=== PATIENT | female | born 1935 | race African-American/Black ===

== ENCOUNTER 2019-02-22 08:39 | Inpatient (IN) ==
[2019-02-22] MEDS ORDERED: ZOFRAN IV PRN (13:04)
[2019-02-22] MEDS ORDERED: TYLENOL PO PRN (13:04)
[2019-02-22] MEDS ORDERED: NS 1,000 ML IV SCH (13:15)
[2019-02-22 13:24] LABS: BASO# 0.02 X1000 (0.0-0.2); BASO% 0.4 % (0.0-0.8); EOS# 0.13 X1000 (0.0-0.7); EOS% 2.7 % (0.0-10.0); HEMATOCRIT 27.9 % (37.0-47.0); HEMOGLOBIN 9.2 g/dL (12.0-16.0); IMM GRAN# 0.03 X1000 (0.0-0.04); IMM GRAN% 0.6 % (0.0-0.5); LYMPH# 1.22 X1000 (1.2-3.4); LYMPH% 25.4 % (20.5-51.1); MCH 29.2 PG (27-31); MCV 88.6 FL (81-99); MONO# 0.37 X1000 (0.11-0.59); MONO% 7.7 % (1.7-9.3); MPV 10.1 FL (7.4-10.4); NEUT# 3.03 X1000 (1.4-6.5); NEUT% 63.2 % (42.2-75.2); PLT 296 X1000 (130-400); RBC 3.15 XMIL (4.2-5.4); RDW 14.5 % (11.5-14.5)
[2019-02-22 13:47] LABS: ALBUMIN 3.6 g/dL (3.5-5.0); CALCIUM 9.4 mg/dL (8.8-10.2); CREATININE 2.5 mg/dL (0.5-0.9); POTASSIUM 5.1 mmol/L (3.5-5.1); TOTAL BILIRUBIN 0.25 mg/dL (0.20-1.00); TOTAL PROTEIN 7.3 g/dL (6.3-8.3)
--- NOTE | 2019-02-22 14:55 | PROGRESS NOTE ---
DATE: 02/22/2019 SUBJECTIVE: Patient has no major issues. She was at [facility], admitted for renal failure, anemia. Now she was found to have a ureteral mass and hydronephrosis of unknown age. Clinically, she really does not have any major issues on exam. She is doing okay. Her creatinine is at a level of 2.5 here, 2.8 which I think is a mild improvement from previous. The rest of her electrolytes are unremarkable. She is anemic but not profoundly so. PROBLEM LIST: 1. Acute on chronic renal failure. Continue hydration and follow. Check urine electrolytes but I am not sure if there may not be a chronic component or at least a chronic component related to her hydronephrosis. 2. Anemia, stable currently. We will continue to follow hemoglobin and hematocrit. 3. Ureteral mass. I have consulted Dr. Yi. He is continuous pickling line pickler today. I think they have discussed with Dr. Thompson, so in any case, she will get them evaluated. I think cystoscopy is reasonable but that will be at the discretion of the urologist. I will make her n.p.o. after midnight just in case. This is a euzk-mi-guhi encounter note with Karissa Leung. cc: MD Milvia Sandoval MD
--- NOTE | 2019-02-22 15:55 | HISTORY AND PHYSICAL ---
CHIEF COMPLAINT: Acute kidney injury and right UPJ mass. HISTORY OF PRESENT ILLNESS: Ms. Martinez is an 83-year-old female with a history of hypertension, gastroesophageal reflux disease, diabetes mellitus type 2, chronic kidney disease, hypothyroid. She presents to the hospital as a transfer from [facility]. According to the emergency room physician, Ms. Martinez presented with abdominal pain. A CT of the abdomen and pelvis was performed which reportedly revealed a UPJ mass with severe right hydronephrosis. She was also noted to have a creatinine of 3.6, and according to records at [facility], her baseline creatinine was 1.3. In report from the ER physician, she stated that Ms. Martinez was in urinary retention and reportedly had 1100 mL of urine output with abdominal pain decreasing. The ER physician stated that she spoke with Dr. Thompson. PAST MEDICAL HISTORY: Hypertension, diabetes mellitus type 2, gastroesophageal reflux disease, hypothyroid. PAST SURGICAL HISTORY: Bilateral knee replacement, hysterectomy. SOCIAL HISTORY: She denies alcohol, tobacco, or illicit drug use. ALLERGIES: No known drug allergies. HOME MEDICATIONS: A list will be obtained by the nursing staff and, once verified, we will review and restart as appropriate. REVIEW OF SYSTEMS: Discussed with the patient with pertinent positives stated in the HPI. She denied any syncope, dizziness, any shortness of breath, cough, any fever, chills, any nausea, vomiting, diarrhea, constipation, any black or bloody vomitus, any hematuria, dysuria, frequency, urgency. PHYSICAL EXAMINATION: GENERAL: This is an 83-year-old female, who is lying on the bed in no distress. VITAL SIGNS: Blood pressure is 150/60 with heart rate of 76, respirations 20, temperature is 98 degrees oral with room air saturations 100%. EYES: Pupils are equal, round, react to light. EOMS are intact. Sclerae anicteric. HEENT: Head is normocephalic, atraumatic. Mucous membranes are moist. NECK: Supple with trachea midline. CARDIOVASCULAR: Regular rate and rhythm. S1, S2 appreciated. She has no lower extremity edema. Calves are nontender bilateral. Peripheral pulses palpable x4 extremities. PULMONARY: Breath sounds are clear. No increased work of breathing noted. Chest rises and falls symmetric with respiration. Chest wall is nontender to palpation. GASTROINTESTINAL: Abdomen is soft, nontender, nondistended with bowel sounds in all 4 quadrants. GENITOURINARY: She has right CVAT. Shelley is patent to bedside bag with clear yellow urine draining. NEUROLOGIC: She is alert and oriented x3. SKIN: Warm and dry. ASSESSMENT AND PLAN: 1. 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 Computed tomography scan was sent with the patient on disk; we will have it loaded in the system so that Dr. Yi can review. As stated before, we will consult Dr. Yi. 2. Diabetes mellitus. She will be placed on pattern blood glucose with sliding scale insulin, diabetic diet. 3. Hypertension. We will identify her home medications and continue this as appropriate. 4. Hypothyroid. We will check a thyroid stimulating hormone. Identify her home medications. 5. Acute kidney injury. According to reportedly her baseline creatinine is 1.3, we will continue with intravenous gentle hydration, check urine electrolytes. Further treatments pending hospital course. Dictated by ELAINE Reyes for El Franklin MD cc: ELAINE Reyes MD [facility]
--- NOTE | 2019-02-22 18:41 | CONSULTATION ---
DATE OF CONSULTATION: 02/22/2019 ATTENDING AND REFERRING PHYSICIAN: Hospitalist. HISTORY OF PRESENT ILLNESS: This 83-year-old female was admitted with right flank pain, renal insufficiency and intermittent hematuria. The patient and family state that yesterday her pain increased and she was seen in the emergency room in [place]. The patient's daughter states she had a CT scan without contrast that reportedly revealed a right UPJ mass or stone. There was also hydronephrosis associated with this. The patient states this has never occurred before. She states she began noticing blood approximately 2 months ago. She states it is just intermittent and most of the time she has yellow urine. The patient states she is voiding without difficulty. She has a long history of diabetes and renal insufficiency, but her creatinine was noted to be 3.6 at hospital admission in [place], and supposedly her baseline is 1.3. The patient states that she continues with the right flank pain. She states it is not severe, she just notices it. She has no history of kidney stones or problems with urinary tract infections. PAST MEDICAL HISTORY: Diabetes, hypertension, elevated cholesterol, gastroesophageal reflux disease, hypothyroidism. MEDICATIONS: Current medications are documented on the chart. PAST SURGICAL HISTORY: Tonsillectomy many years ago, hysterectomy, bilateral knee replacements. SOCIAL HISTORY: There is no tobacco or alcohol use. ALLERGIES: No known drug allergies. REVIEW OF SYSTEMS: She denies any cardiac problems, chest pains or recent bowel problems. She states she has not had any blood in her stool. PHYSICAL EXAMINATION: General: A mildly obese, age-apparent, normally developed black female, oriented in all ways and cooperative. HEENT is normal for age. Lungs are clear. Cardiovascular: Regular rate and rhythm. Abdomen protuberant, soft, nontender. No hepatosplenomegaly or masses. Normal bowel sounds. Back: Mild right CVA tenderness. Left side is normal. exam: Normal external female, but the exam will be deferred until surgery. Extremities: No clubbing, cyanosis or edema. Neurologic: No focal deficits. LABORATORY DATA: White count of 4.8, hemoglobin 9.2, hematocrit of 27.9 and platelets are 296,000. Serum electrolytes are normal. BUN 19, creatinine 2.5. Her creatinine in 05/2014 was listed as 1.9. DIAGNOSTIC DATA: CT scan images will be obtained and reviewed. PLAN: 1. Obtain CT scan images and review. 2. She will need a cystoscopic exam with bilateral retrograde ureteral pyelograms and probable right ureteroscopy with biopsies if a mass is present. Would place a double-J stent at that time. The planned procedure, benefits versus risks and possible complications including, but not limited to, continued bleeding, not finding an abnormality, and finding an abnormality with need for further treatment were discussed. They seemed to understand and desired to proceed. cc: Meek Yi MD
[2019-02-22] MEDS: NS 1,000 ML IV SCH (19:02)
[2019-02-22] MEDS: HUMALOG SUBQ SCH ×2 (19:03→21:15)
[2019-02-22] MEDS: ALPHAGAN 0.2% OPHTH SOLN BOTH EYES SCH (21:14)
[2019-02-23] MEDS: NS 1,000 ML IV SCH ×3 (04:06→19:43)
[2019-02-23] MEDS: HUMALOG SUBQ SCH ×4 (06:18→21:18)
[2019-02-23] MEDS: SYNTHROID PO SCH (06:18)
[2019-02-23] MEDS: PRILOSEC PO SCH (06:18)
[2019-02-23 07:38] LABS: BASO# 0.01 X1000 (0.0-0.2); BASO% 0.2 % (0.0-0.8); EOS# 0.19 X1000 (0.0-0.7); EOS% 4.2 % (0.0-10.0); HEMATOCRIT 26.8 % (37.0-47.0); HEMOGLOBIN 8.8 g/dL (12.0-16.0); IMM GRAN# 0.02 X1000 (0.0-0.04); IMM GRAN% 0.4 % (0.0-0.5); LYMPH# 1.12 X1000 (1.2-3.4); LYMPH% 24.9 % (20.5-51.1); MCH 28.9 PG (27-31); MCHC 32.8 g/dL (33-37); MCV 88.2 FL (81-99); MONO# 0.37 X1000 (0.11-0.59); MONO% 8.2 % (1.7-9.3); NEUT# 2.78 X1000 (1.4-6.5); NEUT% 62.1 % (42.2-75.2); PLT 303 X1000 (130-400); RBC 3.04 XMIL (4.2-5.4); RDW 14.3 % (11.5-14.5); WBC 4.49 X1000 (4.8-10.8)
[2019-02-23 07:58] LABS: CALCIUM 9.2 mg/dL (8.8-10.2); CREATININE 2.2 mg/dL (0.5-0.9); POTASSIUM 4.6 mmol/L (3.5-5.1)
[2019-02-23] MEDS: ASPIRIN EC PO SCH (11:00)
[2019-02-23] MEDS: TRAVATAN 0.004% OPH SOLN BOTH EYES SCH (11:00)
[2019-02-23] MEDS: LEXAPRO PO SCH (11:00)
[2019-02-23] MEDS: ALPHAGAN 0.2% OPHTH SOLN BOTH EYES SCH ×2 (11:01→20:32)
--- NOTE | 2019-02-23 15:11 | PROGRESS NOTE ---
DATE: 02/23/2019 INTERVAL HISTORY: The patient's abdominal pain is somewhat improved. Reasonable urine output. No acute events overnight. No new complaints. REVIEW OF SYSTEMS: Twelve point review of systems negative, except as per interval history. LABS: WBC 4.4, hemoglobin 8.8, hematocrit 26.8, platelets 303. Sodium 140, potassium 4.6, chloride 109, bicarbonate 22, creatinine 2.2, glucose 103 to 183. TSH 0.49. VITALS: T-max 98.0, pulse 69, respirations 18, blood pressure 128/49, O2 saturation 99% on room air. PHYSICAL EXAMINATION: General: No acute distress. Vitals: As above. HEENT: Normocephalic, atraumatic. Moist mucous membranes. Neck: No cervical adenopathy. Cardiovascular: Regular rate and rhythm. No murmurs, rubs, or gallops noted. Pulmonary: Clear to auscultation bilaterally. No wheezing, rales or rhonchi noted. Abdomen: Soft, nontender, nondistended. Bowel sounds positive. Minimal right CVA tenderness noted, improved from previous. Extremities: Peripheral pulses intact. No clubbing or cyanosis. Neurologic: Cranial nerves grossly intact. No focal deficits identified. Psychiatric: Normal mood and affect. Awake, alert, oriented x3. Skin: No new rashes or lesions noted. ASSESSMENT AND PLAN: 1. Reported right ureteropelvic junction mass versus stone with right hydronephrosis. Urology on board and tentatively planning for cystoscopy tomorrow. Symptoms somewhat improved, and kidney function stable. Continue to monitor. 2. Acute kidney injury on chronic kidney disease stage III. The patient reported baseline creatinine 1.3. Last recorded creatinine here 1.9 in 2013. Creatinine on admission 2.5. Somewhat improved today at 2.2. Continue to monitor. 3. Diabetes mellitus. Reasonable control of glucose on current sliding scale insulin. Continue to monitor. 4. Hypothyroidism. Continue home Synthroid. 5. Hypertension. Holding home lisinopril in the setting of acute kidney injury. Will monitor and consider alternate therapy if marked hypertension develops. 6. Gastroesophageal reflux disease. Continue proton pump inhibitor. 7. Disposition: Cystoscopy tomorrow. If obstruction appears to be stone, then can likely go home late tomorrow or early Thursday. If obstruction appears to be mass, then may need further oncologic workup.
[2019-02-23] MEDS: LIPITOR PO SCH (20:32)
[2019-02-24] MEDS: HUMALOG SUBQ SCH ×4 (06:06→22:26)
[2019-02-24] MEDS: PRILOSEC PO SCH (06:06)
[2019-02-24] MEDS: SYNTHROID PO SCH (06:06)
[2019-02-24] MEDS: ALPHAGAN 0.2% OPHTH SOLN BOTH EYES SCH ×2 (08:34→21:14)
[2019-02-24] MEDS: LEXAPRO PO SCH (08:34)
[2019-02-24] MEDS: TRAVATAN 0.004% OPH SOLN BOTH EYES SCH (08:34)
[2019-02-24] MEDS: ASPIRIN EC PO SCH (08:34)
[2019-02-24] MEDS: NS 1,000 ML IV SCH (11:31)
--- NOTE | 2019-02-24 12:43 | PROGRESS NOTE ---
DATE: 02/24/2019 INTERVAL HISTORY: No acute events overnight. The patient has been admitted for right-sided severe hydronephrosis and suspected ureteropelvic junction mass and acute kidney injury. SUBJECTIVE: The patient is drowsy. Does not answer questions appropriately. She is very sleepy as well. Patient's daughter is at bedside. The patient denies any more nausea/vomiting or abdominal pain. She was able to eat liquids yesterday without any trouble. She denies any new complaints. OBJECTIVE: Vitals: Currently temperature 98 degrees, pulse 63, respiratory rate 20, blood pressure 146/56, saturating 100% on room air. On physical examination, the patient is not in any acute distress. She does appear to have exophthalmos. Oral cavity is moist. Air entry bilaterally equal. No wheeze, rhonchi, or crackles. S1, S2 normal. No murmur, rub, or gallop. Abdomen is soft, nontender. Mild bilateral lower extremity edema extending up to mid hoffman level of 1+. Neurologic: She is alert. She is oriented to place, time, and she is following simple commands. Does not appear in any acute distress. Bedside monitor has irregular heart rhythm, likely premature atrial contraction. An EKG has been ordered. LABORATORIES: No CBC today. BMP yesterday had elevated BUN and creatinine, likely acute kidney injury on baseline chronic kidney disease. However, on my review in 2013, her GFR was 31. MICROBIOLOGY: No data. IMAGING: CT scan of the abdomen and pelvis from outside hospital has been reviewed. ASSESSMENT AND PLAN: 1. Severe right-sided hydronephrosis of kidney with suspected ureteropelvic junction obstruction with mass and urinary retention leading to suspected acute kidney injury. Follow-up bladder scan to rule out persistent urinary retention. Continue intravenous fluids and hold her home lisinopril. Follow up repeat BMP. The patient likely to undergo cystoscopy, ureteroscopy with likely double-J stenting today. Urology on board. 2.Normocytic anemia: Follow up Iron panel. She may need age appropriate cancer screening in future. 2. History of [id number] diabetes mellitus. Currently blood sugars are in acceptable range. I will continue her on sliding scale insulin. 3. Essential hypertension. I am holding her home lisinopril because of acute kidney injury, and we will start her on amlodipine and follow up blood pressure closely. I will also continue home atorvastatin for hyperlipidemia. 4. Continue home brimonidine for glaucoma, ergocalciferol for vitamin D deficiency, citalopram from anxiety and depression, levothyroxine for hypothyroidism, omeprazole for chronic GERD. 5. Others: Normocytic anemia. Currently it appears stable. I will follow up with frequent CBC, and I will also get iron panel performed. Plan of care discussed with the patient and her daughter at bedside. All of their questions have been answered. cc: Zeb Wayne MD MTDD
[2019-02-24 13:06] LABS: CALCIUM 8.9 mg/dL (8.8-10.2); CREATININE 2.1 mg/dL (0.5-0.9); IRON SATURATION 46 %; TIBC 322 ug/dL; TOTAL IRON 148 ug/dL (49-151); UNBOUND IRON 174 ug/dL (112-346)
[2019-02-24 13:27] LABS: FERRITIN 731 ng/mL (13-150)
--- NOTE | 2019-02-24 13:42 | EKG Report ---
Test Performed on : 02/24/2019 1:36:27 PM Test Reason : R/o heart block Blood Pressure : / mmHG Vent. Rate : 071 BPM Atrial Rate : 071 BPM P-R Int : 148 ms QRS Dur : 078 ms QT Int : 400 ms P-R-T Axes : 075 040 061 degrees QTc Int : 434 ms Sinus rhythm. with premature atrial complexes. Nonspecific T wave abnormality Abnormal ECG No previous ECGs available Confirmed by Kalen MANNING, Sony Mcconnell ([id number]) on 02/27/2019 4:37:45 PM
[2019-02-24] MEDS ORDERED: DIPRIVAN 1% ONE (14:44)
[2019-02-24] MEDS ORDERED: XYLOCAINE-MPF 2% ONE (15:23)
[2019-02-24] MEDS ORDERED: KEFZOL 2 GM/D5W 2 GM/50 ML IVPB ONE (15:28)
[2019-02-24] MEDS ORDERED: NEOSPORIN G.U. IRRIGANT ONE (15:30)
[2019-02-24] MEDS ORDERED: DECADRON ONE (15:47)
[2019-02-24] MEDS ORDERED: ZOFRAN ONE (15:47)
[2019-02-24] MEDS ORDERED: NORCO-7.5 PO PRN (17:01)
--- NOTE | 2019-02-24 17:38 | OPERATIVE NOTE ---
PROCEDURE DATE: 02/24/2019 SURGEON: Meek Yi MD PREOPERATIVE DIAGNOSIS: Severe right hydronephrosis with possible mass in the right ureteral pelvic junction or proximal ureter. POSTOPERATIVE DIAGNOSES: 1. Severe right hydronephrosis with possible mass in the right ureteral pelvic junction or proximal ureter. 2. Complete obstruction of the right proximal ureter. ANESTHESIA: General via laryngeal mask. PROCEDURE PERFORMED: 1. Cystoscopic exam with bilateral retrograde pyelograms. 2. Right ureteroscopy. 3. Cordova biopsy of the right proximal ureter with 3-Afghan cold cup biopsies of the right proximal ureter. 4. 3-Afghan cold cup biopsies of the right mid ureter. FINDINGS: Cystoscopic exam: Urethra-greater than 21 Afghan, without stricture. Bladder: There was some old blood in the bladder, and this was easily irrigated free. Normal ureteral orifices bilaterally. Clear efflux from the left. Nothing seen from the right. Mild trabeculations. No papillary lesions. No diverticula. Left retrograde ureteral pyelogram normal without filling defect. Right retrograde ureteral pyelogram reveals complete obstruction at the right proximal ureter. The distal ureter filled up to the right proximal ureter, but no contrast, not even a wisp, went up into the kidney area. The retrograde pyelogram was over-pressurized, and there was some extravasation of contrast outside the ureter. Genitourinary exam: Normal external female. Atrophic mucosa. No adnexal masses. Palpably normal bladder. A small urethral caruncle was noted. INDICATION FOR PROCEDURE: This 83-year-old female was admitted for some right flank pain with hematuria and severe right-sided hydronephrosis. The CT scan without contrast suggested a mass at the right UPJ area. It was also noted that there was minimal, if any, renal parenchyma on the right side. DESCRIPTION OF PROCEDURE: After informed consent was obtained from the patient's family and her receiving IV antibiotics, she was taken the main OR cystoscopy room and placed in the supine position. General anesthesia via laryngeal mask was achieved. She was then placed in the low lithotomy position and prepped and draped in the usual sterile fashion for cystoscopic exam. A 21- Afghan sheath cystoscope was passed through the patient's urethra and into the bladder with findings noted above. An 8-Afghan cone-tipped catheter was passed through the cystoscope and engaged the left ureteral orifice. Contrast was injected. Again, no filling defects were seen on the left. On the right side, the right proximal ureter was completely blocked. Right ureteroscopy revealed a small lesion in the proximal ureter and complete blockage of the proximal ureter and it did appear there was some abnormal tissue at the blockage. The 8-Afghan cone-tipped catheter was removed. A 0.035 ZIPwire was passed through the cystoscope, engaged the right ureteral orifice, and advanced up the ureter and coiled in the proximal ureter. The cystoscope was removed, leaving the ZIPwire in place to act as a safety wire. A 7-Afghan Storz semi-rigid ureteroscope was advanced through the patient's urethra and into the bladder. A 0.035 Sensor wire was passed through the ureteroscope and into the ureter. The ureteroscope was advanced over the Sensor wire, beneath the ZIPwire, up to the obstructed area. There was some bleeding around this area. The Sensor wire was removed. A 3-Afghan brush was placed and the area where the blockage was found was brushed and this was sent to cytology. The 3- Afghan cold cup biopsy forceps was placed and multiple biopsies were taken of this area. All of these biopsies were sent in 1 container. The ureteroscope was pulled back to the mid ureter and 3-Afghan cold cup biopsies of the lesion in the mid ureter were taken. The ureteroscope was removed. The cystoscope was returned to the bladder. The bladder was drained. The cystoscope was removed. exam was performed. Because the ureter was completely blocked and a wire could not be placed up in the kidney, a double-J stent was not placed. Estimated blood loss 1 mL. She was taken to the recovery room in good condition. cc: Meek Yi MD [facility]
[2019-02-24] MEDS ORDERED: APRESOLINE IV PRN (18:15)
[2019-02-24] MEDS: NORVASC PO SCH (18:17)
[2019-02-24] MEDS: LIPITOR PO SCH (21:14)
[2019-02-25] MEDS: HUMALOG SUBQ SCH ×5 (06:03→22:20)
[2019-02-25] MEDS: SYNTHROID PO SCH (06:04)
[2019-02-25] MEDS: PRILOSEC PO SCH (06:04)
[2019-02-25 07:45] LABS: BASO# 0.01 X1000 (0.0-0.2); BASO% 0.1 % (0.0-0.8); CALCIUM 8.9 mg/dL (8.8-10.2); CREATININE 2.2 mg/dL (0.5-0.9); EOS# 0.01 X1000 (0.0-0.7); EOS% 0.1 % (0.0-10.0); HEMATOCRIT 24.8 % (37.0-47.0); HEMOGLOBIN 8.1 g/dL (12.0-16.0); IMM GRAN# 0.02 X1000 (0.0-0.04); IMM GRAN% 0.2 % (0.0-0.5); MAGNESIUM 1.6 mg/dL (1.5-2.7); MCHC 32.7 g/dL (33-37); MCV 88.9 FL (81-99); MONO# 0.89 X1000 (0.11-0.59); MONO% 7.9 % (1.7-9.3); MPV 10.4 FL (7.4-10.4); NEUT# 9.44 X1000 (1.4-6.5); NEUT% 83.7 % (42.2-75.2); PLT 313 X1000 (130-400); POTASSIUM 5.1 mmol/L (3.5-5.1); RBC 2.79 XMIL (4.2-5.4); RDW 14.7 % (11.5-14.5); WBC 11.27 X1000 (4.8-10.8)
[2019-02-25] MEDS: LEXAPRO PO SCH (09:24)
[2019-02-25] MEDS: TRAVATAN 0.004% OPH SOLN BOTH EYES SCH (09:24)
[2019-02-25] MEDS: ASPIRIN EC PO SCH (09:24)
[2019-02-25] MEDS: NORVASC PO SCH (09:24)
[2019-02-25] MEDS: ALPHAGAN 0.2% OPHTH SOLN BOTH EYES SCH ×2 (09:24→22:19)
--- NOTE | 2019-02-25 11:12 | Diag Imaging Result Doc PS360 ---
EXAM: RETROGRADES 2 OR 3 FILMS 02/24/2019 HISTORY: right ureteral blockage; bilateral retrogrades TECHNIQUE: 35 images, 41 seconds fluoroscopy time, dose 0.69 mGy. COMMENT: Contrast was injected in the left ureteral orifice demonstrating slightly distended calyces but no evidence of filling defects or fixed obstructions. Attempted pyelography is performed on the right side with an apparent filling defect or other obstruction at the level of the L3 vertebral body. There is extravasation from the ureter distal to this point during the procedure. Ureteroscopy was performed. No opacification of the upper tract on the right was accomplished. IMPRESSION: Obstructing stone or other lesion in the mid right ureter. Electronically signed by Jarrod Hopson 02/25/2019 11:09 AM
--- NOTE | 2019-02-25 18:49 | PROGRESS NOTE ---
DATE: 02/25/2019 INTERVAL HISTORY: The patient underwent urologic procedure yesterday. She underwent cystoscopic exam with bilateral retrograde pyelogram, right ureteroscopy, brush biopsy of right proximal ureter with cold cup biopsies of the right proximal ureter and right mid ureter, which she tolerated well. Her postoperative course has been unremarkable. SUBJECTIVE: She is feeling fine. Denies any new complaints. She has been eating okay. Denies any chest pain, shortness of breath, nausea, vomiting, abdominal pain. The patient's daughter is at bedside. OBJECTIVE: Vital Signs: Suggest temperature of 98.8 degrees, pulse 64, respiratory rate 18, blood pressure 134/45, saturating 100% on 3 L nasal cannula. HEENT: She does have appear to have some exophthalmos. However, TSH is within acceptable range. She is very sleepy. Oral cavity is moist. Lungs: Air entry bilaterally equal. No wheeze, rhonchi, or crackles. Cardiovascular: S1, S2 normal. No murmur, rub, or gallop. Abdomen: Soft, nontender. Extremities: Only mild lower extremity edema which is better than yesterday. Neurologic: She is drowsy, but arousable. Answers all questions. Oriented to time, place, and person. DIAGNOSTIC DATA: Her EKG yesterday had suggested normal sinus rhythm with premature atrial complexes. Labs suggestive of mild leukocytosis of 11,000, normal hemoglobin, hematocrit, and platelet count except normocytic anemia which is related to anemia of chronic disease, and what appears to be chronic kidney disease stage IV. ASSESSMENT AND PLAN: 1. Severe right-sided hydronephrosis with ureteropelvic junction obstruction with suspected mass or congenital status post cystoscopy and ureteroscopy on 02/24/2019. She has not been retaining urine and has been able to make out urine without any trouble. Stop intravenous fluids. Continue the patient on diet and she should follow up outpatient with Dr. Yi for biopsy results. She did not require any stent. 2. Acute kidney injury versus chronic kidney disease. According to one of the records, it was mentioned in [facility] that her baseline creatinine is 1.3. On my record, she had a creatinine of 1.9 in 2013. She could potentially have now what appears to be chronic kidney disease stage IV, which could be related to ureteropelvic junction which could have been present in the past as well. I do not have previous imaging analysis. Currently, she is making urine and does not have significant electrolyte abnormalities. I will refer her to outpatient Nephrology at the time of discharge. 3. Anemia, likely anemia of chronic disease. She should get age-appropriate cancer screening in the future. 4. History of noninsulin dependent diabetes mellitus with currently acceptable blood sugars. Continue sliding scale insulin. 5. Essential hypertension. Start the patient on amlodipine and increase the dose. Continue atorvastatin for hyperlipidemia. 6. Others. Continue home brimonidine for glaucoma, ergocalciferol for vitamin D deficiency, citalopram for anxiety and depression, levothyroxine for hypothyroidism, omeprazole for chronic gastroesophageal reflux disease. DISPOSITION: If the patient continues to do better, my plan is to discharge her home. According to the patient's daughter at bedside, she is pretty close to her baseline. The patient may not need any home physical therapy. Plan of care discussed with her daughter. All of her questions have been answered. cc: Zeb Wayne MD
[2019-02-25] MEDS: LIPITOR PO SCH (22:19)
[2019-02-26] MEDS: HUMALOG SUBQ SCH ×2 (06:12→12:12)
[2019-02-26] MEDS: PRILOSEC PO SCH (06:25)
[2019-02-26] MEDS: SYNTHROID PO SCH (06:25)
[2019-02-26 08:19] VITALS: BP 167/62
[2019-02-26] MEDS: ASPIRIN EC PO SCH (09:54)
[2019-02-26] MEDS: LEXAPRO PO SCH (09:54)
[2019-02-26] MEDS: NORVASC PO SCH (09:54)
[2019-02-26] MEDS: ALPHAGAN 0.2% OPHTH SOLN BOTH EYES SCH (09:54)
[2019-02-26] MEDS: TRAVATAN 0.004% OPH SOLN BOTH EYES SCH (09:55)
[2019-02-26] MEDS ORDERED: NORVASC PO ONE (10:51)
--- NOTE | 2019-02-26 17:41 | DISCHARGE SUMMARY ---
ADMISSION DATE: 02/22/2019 DISCHARGE DATE: 02/26/2019 DISCHARGE DISPOSITION: Home with family. DISCHARGE CONDITION: Stable. Alert, oriented, able to come out of bed and walk. CONSULTATION: Dr. Yi. DISCHARGE DIAGNOSIS: 1. Severe right-sided hydronephrosis. 2. Ureteropelvic junction obstruction pending biopsy results. 3. Kidney dysfunction likely chronic kidney disease stage 4. 4. Anemia of chronic disease. 5. Essential hypertension. 6. Others. History of [id number] diabetes mellitus. 7. History of essential hypertension. 8. History of vitamin D deficiency. 9. History of anxiety and depression. 10. History of glaucoma. 11. History of hypothyroidism. 12. Chronic gastroesophageal reflux disease. DISCHARGE MEDICATIONS: Brimonidine 0.2% ophthalmic solution both eyes b.i.d., escitalopram 10 mg daily, atorvastatin 20 mg daily, aspirin 81 mg daily, omeprazole 40 mg daily, pioglitazone 45 mg daily, levothyroxine 100 mcg daily, travoprost 1 drop both eyes daily, ergocalciferol 50,000 units every week on Thursday, amlodipine 10 mg daily, 30 tablets have been prescribed. PROCEDURES: The patient underwent cystoscopic exam with bilateral retrograde pyelogram, right ureteroscopy, brush biopsy of the right proximal ureter with 3-[place] cold cup biopsies of the right proximal ureter, 3-[place] cold cup biopsies of the right midureter on February 24. VITALS: At the time of discharge temperature of 98.4 degrees, pulse 76, respiratory 16, blood pressure 162/54, saturating 100% on room air. PHYSICAL EXAMINATION: The patient is sleeping, easily arousable with verbal stimuli, not in any acute distress. She does have prominent eyeballs, however TSH was in acceptable range. Oral cavity is moist. Air entry bilaterally equal. No wheeze, rhonchi or crackles. S1, S2 normal. No murmur or gallop. Abdomen: Soft, nontender. Mild lower extremity edema. Neurologic: She is alert. She is arousable then engages in conversation. She is oriented to place and person. According to family at bedside that is her baseline. SIGNIFICANT LABS: Her WBC is 11,000, hemoglobin 8.1, platelet count of 313,000. Normal electrolytes except BUN of 15, creatinine of 2.2 and GFR of 26. Her blood sugar is 143. Significant micro none. SIGNIFICANT IMAGING: Prior to presentation patient did have a CAT scan abdomen and pelvis at outside hospital which had suggested severe hydronephrosis affecting right kidney with suspected ureteropelvic junction, retrograde pyelogram of the right kidney during this hospital admission detected obstructing stone or other lesion in midureter. HOSPITAL COURSE SUMMARY: Ms. Martinez is 83 years old female with past medical history of essential hypertension and documented chronic kidney disease who had gone to [facility] for abdominal pain where a CT scan of abdomen was performed which had suggested urinary retention, severe right-sided hydronephrosis and suspected ureteropelvic junction mass so she was transferred to [facility] for urologic evaluation. The patient was evaluated by Urology and she underwent uroscopic procedure and biopsy of ureteropelvic junction which was obstructed. The biopsy results were not back at the time of this dictation and patient was advised to follow up with Dr. Yi as an outpatient. Urology team was of opinion that the patient's right kidney had almost stopped functioning considering severe hydronephrosis and the obstruction could have been related to congenital ureteropelvic junction obstruction versus renal stone which was less likely versus a mass and she was advised to follow up with Urology outpatient. Patient was also found to have elevated BUN and creatinine. However in our records she did have elevated creatinine in 2014. It was thought to be related to chronic kidney disease. She was advised to follow up and establish care with Nephrology as an outpatient. Her lisinopril was held at the time of discharge. Essential hypertension. She was started on amlodipine the dose of which was adjusted. The patient was provided instructions about following with repeat BMP and repeat blood pressure in primary care's office and discussed about adding another medication. Her anemia panel has suggested anemia of chronic disease likely anemia of chronic kidney disease which did not require any transfusion. She was continued on her home medication for glaucoma, anxiety, depression, GERD and hypothyroidism. At the time of discharge patient was hemodynamically stable and according to the family was at her baseline level of functional status so she was advised to be discharged home. TIME SPENT: More than 30 minutes. All of her and patient's family members at bedside questions were answered satisfactorily. cc: Zeb Wayne MD
[2019-02-27] MEDS ORDERED: VITAMIN D PO SCH (08:00)
[2019-02-27] MEDS ORDERED: NORVASC PO SCH (09:00)
== END 2019-02-26 15:13 | disposition home health service (06) | DRG 694 ==
LOC: SUATTDRO 08:39 → DIRADM 08:39 → 3N 11:10
PROVIDERS: ATTEND Internal Medicine
CPT/HCPCS: 74420; 80048; 80053; 82607; 82728; 82948; 83540; 83550; 83735; 84443; 85025; 88305; 88313; 93005; 93010; 94761; 97162; 97530; A9270; J0360; J0690; J1100; J1815; J2405; J7030; Q9966; Q9967; XXXXX